=== PATIENT | female | born 2000 | race Caucasian/White ===

== ENCOUNTER 2019-08-03 11:03 | Emergency (ER) | payer MEDICAID, OTHER ==
[~2019-08-03] VITALS: Ht 149.9 cm; Wt 84.4 kg
[2019-08-03 11:50] VITALS: BP 155/92
--- NOTE | 2019-08-03 12:34 | NUR ---
PT TO ER BED 11
--- NOTE | 2019-08-03 13:28 | NUR ---
PT C/O HEADACHE X1 WEEK TO BACK OF HEAD RADIATING TO FRONT OF HEAD, SHOOTING PAIN, CONSTANT; DENIES CHANGES IN VISION PT STATES SHE TOOK ASPIRIN [employer]NA[employer] QUANTITATIVE, WHICH MAKES THE PAIN TOLERABLE. HX NONE
[2019-08-03] MEDS: KETOROLAC 60 MG/2 ML VIAL IM ONE (13:31)
[2019-08-03 14:30] LABS: APPEARANCE,URINE CLEAR (CLEAR); BILIRUBIN,URINE NEGATIVE (NEGATIVE); BLOOD, URINE 3+ (NEGATIVE); COLOR,URINE YELLOW (YELLOW); LEUKOCYTE ESTERASE ,URINE NEGATIVE (NEGATIVE); NITRITE, URINE NEGATIVE (NEGATIVE); UGLUCOSE NEGATIVE (NEGATIVE)
[2019-08-03 14:39] LABS: WBC,URINE 0-5 /HPF (0-5)
--- NOTE | 2019-08-03 15:00 | NUR ---
Pt resting in bed with family at bedside. Pt awake and alert. Vital Signs Stable. Pain level 7/10.
[2019-08-03 15:39] VITALS: BP 128/90
--- NOTE | 2019-08-03 15:39 | NUR ---
Patient discharged by Dr. Alexandre with v/s stable. Written and verbal after care instructions given and explained. Patient alert, oriented and verbalized understanding of instructions. Ambulatory with steady gait. All questions addressed prior to discharge. ID band removed. Patient advised to follow up with PMD. Rx of Naprosyn 500mg and Macrobid capsule 100mg was given. Patient educated on indication of medication including possible reaction and side effects. Opportunity to ask questions provided and answered.
== END 2019-08-03 15:39 | disposition home or self-care (01) ==
LOC: MED 11:03
DX: N39.0 Urinary tract infection, site not specified (principal)
CPT/HCPCS: 81001; 96372; 99283; J1885

== ENCOUNTER 2022-09-02 08:22 | Emergency (ER) | payer SELFPAY ==
[~2022-09-02] VITALS: Ht 149.9 cm; Wt 100.7 kg
[2022-09-02 08:27] VITALS: BP 156/94
--- NOTE | 2022-09-02 08:37 | NUR ---
ASSUMED PATIENT CARE, NURSING ASSESSMENT COMPLETED. SEEN AND EVALUATED BY DR JEROME, MSE COMPLETED.
[2022-09-02 09:07] VITALS: BP 115/56
--- NOTE | 2022-09-02 09:07 | NUR ---
STREP SWAB SENT TO LAB.
--- NOTE | 2022-09-02 09:08 | NUR ---
DISPO AND MEDICAL DECISION MAKING, [facility] HOME WITH AFTERCARE INSTRUCTIONS. INSTRUCTED PATIENT TO WAIT FOR CALL FROM MD REGARDING STREP SWAB RESULTS. ALL INSTRUCTIONS UNDERSTOOD BY PATIENT WELL, VS WNL. NO DISTRESS.
== END 2022-09-02 09:07 | disposition home or self-care (01) ==
LOC: MED 08:22
DX: J03.90 Acute tonsillitis, unspecified (principal)
CPT/HCPCS: 87081; 99283